=== PATIENT | female | born 1990 | race Caucasian/White ===

== ENCOUNTER 2017-11-09 01:08 | Outpatient (CLI) | payer BC, SELFPAY ==
--- NOTE | 2017-11-09 14:31 | DI.MRI_ITS ---
SYMPTOM/DIAGNOSIS: RT SIDED PULSATILE TINNITUS N93.A1 NECK MRA: The study was conducted according to the usual protocol without contrast enhancement. The right common and internal carotid arteries are unremarkable. The right external carotid and right vertebral artery is unremarkable. The right common carotid, right internal carotid arteries are unremarkable. The left internal carotid and left vertebral artery is unremarkable. SUMMARY No abnormality is demonstrated. Normal MRA neck.
--- NOTE | 2017-11-09 15:25 | DI.MRI_ITS ---
SYMPTOM/DIAGNOSIS: RT SIDED PULSATILE TINNITUS H93.A1 MRA OF HEAD WITHOUT INTRAVENOUS CONTRAST: The study was conducted according to the usual protocol. The right internal carotid artery is unremarkable. The right anterior, middle and posterior cerebral arteries are unremarkable. The right vertebral artery is unremarkable. The left internal carotid artery, left anterior, middle and posterior cerebral artery is normal. The left vertebral artery is unremarkable. The basilar artery is unremarkable. There is no evidence of occlusion or stenosis. There is no aneurysm. SUMMARY: Normal brain MRA.
--- NOTE | 2017-11-09 16:46 | DI.VRAD_ITS ---
EXAM: MR Angiography Head Without And With Intravenous Contrast CLINICAL HISTORY: 27 years old, female; Pain; Other: R sided tinnitus TECHNIQUE: Magnetic resonance angiography images of the head without and with intravenous contrast. MIP reconstructed images were created and reviewed. COMPARISON: CAROTID MRA^CAROTIDS 11/09/2017 2:58 PM FINDINGS: Right internal carotid artery: No acute findings. Intracranial segment is patent with no significant stenosis. No aneurysm. Right anterior cerebral artery: Unremarkable. No occlusion or significant stenosis. No aneurysm. Right middle cerebral artery: Unremarkable. No occlusion or significant stenosis. No aneurysm. Right posterior cerebral artery: Unremarkable. No occlusion or significant stenosis. No aneurysm. Right vertebral artery: Unremarkable as visualized. Left internal carotid artery: No acute findings. Intracranial segment is patent with no significant stenosis. No aneurysm. Left anterior cerebral artery: Unremarkable. No occlusion or significant stenosis. No aneurysm. Left middle cerebral artery: Unremarkable. No occlusion or significant stenosis. No aneurysm. Left posterior cerebral artery: Unremarkable. No occlusion or significant stenosis. No aneurysm. Left vertebral artery: Unremarkable as visualized. Basilar artery: Unremarkable. No occlusion or significant stenosis. No aneurysm. IMPRESSION: Normal head/brain MRA. Dictated and Authenticated by: Lyle Vazquez MD. Ordering:CHARISMA DE LOS SANTOS MD
--- NOTE | 2017-11-09 16:48 | DI.VRAD_ITS ---
EXAM: MR Angiography Neck Without Intravenous Contrast CLINICAL HISTORY: 27 years old, female; Pain; Other: R sided tinnitus TECHNIQUE: Magnetic resonance angiography images of the neck without intravenous contrast. MIP reconstructed images were created and reviewed. COMPARISON: No relevant prior studies available. FINDINGS: Right common carotid artery: Unremarkable. No significant stenosis. No dissection or occlusion. Right internal carotid artery: Unremarkable. Extracranial segment is patent with no significant stenosis. No dissection or occlusion. Right external carotid artery: Unremarkable. No occlusion. Right vertebral artery: Unremarkable. No significant stenosis. No dissection or occlusion. Left common carotid artery: Unremarkable. No significant stenosis. No dissection or occlusion. Left internal carotid artery: Unremarkable. Extracranial segment is patent with no significant stenosis. No dissection or occlusion. Left external carotid artery: Unremarkable. No occlusion. Left vertebral artery: Unremarkable. No significant stenosis. No dissection or occlusion. Soft tissues: Unremarkable as visualized. CAROTID STENOSIS REFERENCE USING NASCET CRITERIA: % ICA stenosis = (1 - narrowest ICA diameter/diameter of distal cervical ICA) x 100. Mild - <50% stenosis. Moderate - 50-69% stenosis. Severe - 70-94% stenosis. Near occlusion - 95-99% stenosis. Occluded - 100% stenosis. IMPRESSION: Normal neck MRA. Dictated and Authenticated by: Lyle Vazquez MD. Ordering:CHARISMA DE LOS SANTOS MD
== END 2017-11-09 01:28 ==
PROVIDERS: PCP Nurse Practitioner Family; Visit Provider Otolaryngology Otolaryngology/Facial Plastic Surgery
DX: H93.A1 Pulsatile tinnitus, right ear (principal)
CPT/HCPCS: 70544; 70547

== ENCOUNTER 2018-01-12 10:45 | Outpatient (REF) | payer BC, SELFPAY ==
--- NOTE | 2018-01-12 09:30 | PAPFT_PTH ---
PATIENT: Iraida Renee LOC: [facility] U#:[id number] AGE/SX: 27/F ROOM: RE01/12/[address]: TIP Gonzales : 1990 BED: DIS: 01/12/2018 SPEC #: [id number] RECD: 01/12/18 12:36 STATUS: KEYUR REQ #: [id number] RODRIGO: 01/12/18 09:[address]: Jazzmine Lombardo DEPT: [facility] Cytology RECD BY: Isa Ny ENTERED: 01/12/18 12:37 SP TYPE: PAPFT OTHR DR: Jo-Ann Etienne Tissues: 1 - CX/ENDOCX FOR PAP SMEARS Procedures: PAP THIN PREP/UVM Screening Comments: [id number]
== END 2018-01-12 11:05 ==
LOC: LBN 10:45
PROVIDERS: PCP Nurse Practitioner Family; Visit Provider Nurse Practitioner Family
DX: Z12.4 Encounter for screening for malignant neoplasm of cervix (principal)
CPT/HCPCS: 88142

== ENCOUNTER 2018-05-18 00:34 | Outpatient (CLI) | payer BC, SELFPAY ==
--- NOTE | 2018-05-18 10:50 | DI.US_ITS ---
SYMPTOMS/DIAGNOSIS: PELVIC PAIN, R10.2 PELVIC ULTRASOUND: The uterus measures 6.8 cm in length, 3.4 cm in height and 4.7 cm in width with an endometrial stripe thickness of 10 mm. There is a very small region of sonolucency in the uterine fundus surrounded by a halo of slight increased echogenicity. The findings possibly representing a very early gestation. Prominent vessels are noted in the right apex of the uterus raising the possibility of pelvic congestion syndrome. The ovaries are intact. The right ovary measures 2.9 x 1.5 x 2.3 cm and contains a dominant follicle measuring 1.4 x 1.4 x 1 cm. The left ovary measures 2.4 x 1.3 x 2.2 cm. Multiple follicles are identified. SUMMARY: The possibility of a very early intrauterine gestation could not be excluded on the basis of today's examination. Follow up evaluation with HCG levels and repeat pelvic ultrasound in 5-7 days is suggested for further review.
== END 2018-05-18 00:54 ==
PROVIDERS: PCP Nurse Practitioner Family; Visit Provider Nurse Practitioner Women's Health
DX: R10.2 Pelvic and perineal pain (principal); R93.5 Abnormal findings on diagnostic imaging of other abdominal regions, including retroperitoneum; N94.89 Other specified conditions associated with female genital organs and menstrual cycle
CPT/HCPCS: 76830; 76856

== ENCOUNTER 2018-05-19 13:14 | Outpatient (CLI) | payer BC, SELFPAY ==
[2018-05-19 13:49] LABS: HCG Quant, Pregnancy 1 mIU/mL (1-3)
== END 2018-05-19 13:34 ==
PROVIDERS: PCP Family Medicine; Visit Provider Nurse Practitioner Women's Health
DX: N91.2 Amenorrhea, unspecified (principal)
CPT/HCPCS: 36415; 84702

== ENCOUNTER 2018-05-23 00:55 | Outpatient (CLI) | payer BC, SELFPAY ==
--- NOTE | 2018-05-23 13:16 | DI.US_ITS ---
SYMPTOM/DIAGNOSIS: F/U, PELVIC PAIN, ? IUP WITH DECIDUAL SAC SIGN PELVIC ULTRASOUND: Transabdominal and transvaginal examination was performed. Comparison ultrasound is 05/18/18. The uterus measures 8.1 cm. long by 3.7 cm. AP by 4.7 cm. transverse. The endometrial stripe is within normal limits at .9 cm. No evidence of an intrauterine gestation is seen. The previously noted cystic area is no longer visualized. There is a small amount of fluid seen in the endometrial canal. The ovaries are grossly unremarkable. There is normal blood flow. No evidence of torsion. There is a small amount of free fluid in the cul-de-sac. IMPRESSION: No evidence of an intrauterine gestation.
== END 2018-05-23 01:15 ==
PROVIDERS: PCP Family Medicine; Visit Provider Nurse Practitioner Women's Health
DX: R10.2 Pelvic and perineal pain (principal)
CPT/HCPCS: 76830; 76856

== ENCOUNTER 2019-07-04 10:55 | Outpatient (REF) | payer BC, SELFPAY ==
[2019-07-05 14:56] LABS: Chlamydia Result Negative (Negative); GC Result Negative (Negative)
== END 2019-07-04 11:15 ==
LOC: LBN 10:55
PROVIDERS: PCP Family Medicine; Visit Provider Nurse Practitioner Women's Health
DX: Z11.3 Encounter for screening for infections with a predominantly sexual mode of transmission (principal)
CPT/HCPCS: 87491; 87591

== ENCOUNTER 2020-11-04 11:28 | Outpatient (REF) | payer BC, SELFPAY ==
--- NOTE | 2020-11-04 09:30 | PAPFT_PTH ---
PATIENT: Iraida Renee LOC: [facility] U#:[id number] AGE/SX: 30/F ROOM: RE11/04/[address]: Rowena Landa MD : 1990 BED: DIS: 11/04/2020 SPEC #: [id number] RECD: 11/04/20 12:53 STATUS: KEYUR REMicaela #: [id number] RODRIGO: 11/04/20 09:[address]: Rowena Landa DEPT: [facility] Cytology RECD BY: Isa Ny ENTERED: 11/04/20 12:53 SP TYPE: PAPFT OTHR DR: Marcellus Mercedes Tissues: 1 - CX/ENDOCX FOR PAP SMEARS Procedures: PAP THIN PREP/UVM Screening HPV DNA PROBE Comments: [id number] (CHLAMYDIA/GC)
[2020-11-05 15:45] LABS: Chlamydia Result Negative (Negative); GC Result Negative (Negative)
== END 2020-11-04 11:29 | disposition home or self-care (01) ==
LOC: LBN 11:28
PROVIDERS: PCP Family Medicine; Referring Provider Obstetrics & Gynecology; Visit Provider Obstetrics & Gynecology
DX: Z12.4 Encounter for screening for malignant neoplasm of cervix (principal); Z11.51 Encounter for screening for human papillomavirus (HPV); Z11.3 Encounter for screening for infections with a predominantly sexual mode of transmission
CPT/HCPCS: 87491; 87591; 88142; 87624

== ENCOUNTER 2020-12-15 13:30 | Outpatient (CLI) | payer BC, SELFPAY ==
--- NOTE | 2020-12-15 13:15 | DI.RAD_ITS ---
Exam(s) XR HIP LT COMPLETE AP PELVIS EXAM: XR HIP LT COMPLETE AP PELVIS CLINICAL HISTORY: L hip pain. TECHNIQUE: 2D digital imaging was performed. COMPARISON: CR LEFT HIP COMPLETE from 02/09/2011 CR LEFT HIP COMPLETE from 02/09/2011 US US PELVIS TRANSVAGINAL from 05/23/2018 US US PELVIS TRANSVAGINAL from 05/23/2018 FINDINGS: Two views including AP view of pelvis in both hips and a lateral view of the left hip, compared to left There is no evidence of pelvic nor hip fracture. There is no hip joint space narrowing. No evidence of developmental hip dysplasia. No degenerative changes. Sacroiliac joints appear unremarkable. IMPRESSION: No significant radiographic findings nor significant change compared to January 2011. DATA REPOSITORY: RADIATION DOSE DELIVERED:
== END 2020-12-15 13:31 | disposition home or self-care (01) ==
LOC: DIORS 13:30
PROVIDERS: PCP Family Medicine; Referring Provider Family Medicine; Visit Provider Student in an Organized Health Care Education/Training Program
DX: M25.552 Pain in left hip (principal)
CPT/HCPCS: 73502

== ENCOUNTER 2021-06-07 11:00 | Emergency (ER) | payer MEDICAID, SELFPAY ==
--- NOTE | 2021-06-07 11:00 | RT.EKG_ITS ---
APPROVED REPORT Exam: Resting ECG Reason for Exam: chest pain Patient Location: E HR:93 bpm ECG Measurements Heart Rate 93 AXIS [place] 137 P 66 QRSd 78 QRS 24 QT 364 T 22 QTc 454 Conclusion Sinus rhythm...normal P axis, V-rate 60- 99. Sinus. Normal axis. No STEMI. I have reviewed and interpreted ECG and agree with software generated interpretation.
[2021-06-07 11:09] VITALS: BP 143/88; PULSE 94; RESP 18; TEMP 37.2
--- NOTE | 2021-06-07 11:30 | ED.GENADUL_ITS ---
Discharge Plan Disposition Patient Disposition: HOME Condition: Improving Discharge Details Clinical Impression: Acute pleurisy without pleural effusion Primary Care Provider: Marcellus Mercedes ED Provider: Tylor Acosta Home Meds and New Rx's Prescriptions: New indomethacin 50 mg capsule 50 mg PO TID 5 Days Qty: 15 0RF Rx Instructions: administer with food or milk Continued clonazepam 0.25 mg tablet,disintegrating 0.25 mg PO BID PRN (Reason: panic attack(s)) Qty: 20 0RF multivitamin Tablet 1 tab PO DAILY 0RF albuterol sulfate [ProAir HFA] 8.5 GM HFA aerosol inhaler 1 - 2 puff Inhalation Q6H PRN Qty: 1 0RF Discharge Instructions Instructions: Pleurisy (ED) Additional Instructions: Please ensure that you stay well-hydrated and take medication as prescribed. If you notice any new or worsening symptoms feel free to return to the emergency department immediately for reevaluation. Otherwise follow-up with your primary care provider in the next week especially if you are not improving Referrals: Marcellus Mercedes [Primary Care Provider] - Discharge Data Discharge Date/Time-TO BE ENTERED AT DEPARTURE: 06/07/21 16:11 Medical Decision Making Patient presenting the emergency department chief complaint of chest pain. Patient reports that this began last night and is worse with movement and deep breath. Patient denies any injury or trauma but does state URI illness last week that is resolved. Patient does state that she had COVID in February. Patient has no respiratory symptoms at this point. Physical exam is unremarkable. 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 Plan to perform typical cardiac labs including EKG and troponins. Patient is stable at this time. Please see physician interpretation for full interpretation of EKG but patient is in sinus rhythm with rate of 93, normal EKG with no signs of STEMI or acute infarct. Review of labs shows a nondiagnostic and overall unremarkable CBC, D-dimer 176, potassium slightly low at 3.4 and AST low at 14 otherwise on remarkable CMP. Initial troponin is also negative. Patient reassessed and continues to discomfort so we will give patient GI cocktail and Toradol Review of chest x-ray along with radiologist interpretation shows normal chest no acute findings, no pleural effusions no cardiomegaly and clear lungs. Repeat troponin is also not detectable. Repeat EKG shows again sinus rhythm, rate of 81, no ischemic changes noted. Please see physician interpretation for full interpretation of EKG. Patient reassessed and did state improvement of symptoms but movement and deep inspiration still exacerbate symptoms. Suspect that patient has pleuritic chest pain post viral illness. We will plan on placing patient on indomethacin 3 times daily for the next 5 days and having patient follow-up with primary care provider if not improving. For any new or significant worsening of symptoms patient was encouraged to return to emergency department for reassessment. After discussion of diagnosis and plan of care patient has no further needs, questions, or concerns and states clear understanding to return to the emergency department for any worsening symptoms. HPI General Mode of arrival: ambulatory . Date/Time Provider Initiated Documentation: 06/07/21 11:05 . Limitations to Documentation: no limitations . Information obtained by: patient . History of Present Illness 30 year old F presents to the emergency department with the chief complaint of chest pain, described as moderate, with intensity rated at 6. Quality is described as aching and other (tightness), and is localized to the chest. Patient reports no radiation. Patient started experiencing this day(s) (1) and it has been intermittent. improves with No relieving factors improve symptom(s), No exacerbating factors reported . Patient notes no other symptoms.. Patient did receive the following treatments prior to arrival, other (Tums) Related Data Home Medications Medication Instructions Recorded Confirmed albuterol sulfate 90 mcg/actuation 1 - 2 puff INHALATION Q6H PRN #1 07/08/03/17/21 aerosol inhaler (ProAir HFA) inhaler clonazepam 0.25 mg disintegrating 0.25 mg PO BID PRN #20 tab 06/07/18 03/17/21 tablet multivitamin 1 tab PO DAILY 11/04/20 03/17/21 indomethacin 50 mg capsule 50 mg PO TID 5 Days #15 cap 06/07/21 Previous Rx's Medication Instructions Recorded clonazepam 0.25 mg disintegrating 0.25 mg PO BID PRN #20 tab 06/07/18 tablet indomethacin 50 mg capsule 50 mg PO TID 5 Days #15 cap 06/07/21 Allergies Allergy/AdvReac Type Severity Reaction Status Date / Time codeine Allergy Mild made her Verified 03/17/21 15:06 pass out General Stated Complaint: Chest Pain AMY: 3 Review of Systems Constitutional Constitutional: Denies chills, Denies fever(s) and Denies malaise ENT Ears, Nose, Mouth, and Throat: Denies neck pain and Denies sore throat Cardiovascular Cardiovascular: Reports as per HPI, Reports chest pain, Denies chest pain with activity, Denies syncope, Denies irregular heart rhythm, Denies leg edema, Denies lightheadedness, Denies palpitations and Denies dyspnea Respiratory Respiratory: Denies cough, Denies hemoptysis and Denies dyspnea Gastrointestinal Gastrointestinal: Denies abdominal pain, Denies nausea and Denies vomiting Musculoskeletal Musculoskeletal: Denies back pain and Denies neck pain Neurologic Neurologic: Denies syncope Psychiatric Psychiatric: Denies anxiety Endocrine Endocrine: Denies cold intolerance, Denies heat intolerance and Denies palpitations PFSH All Active Problems (Updated 06/07/21 @ 15:33 by Tylor Acosta NP) Acute pleurisy without pleural effusion (Acute) Ganglion cyst of finger of left hand (Acute) Trochanteric bursitis of right hip (Acute) Labral tear of left hip joint (Acute) Pelvic pain (Acute) PMDD (premenstrual dysphoric disorder) (Acute) Diagnostic Laproscopy (Acute) 2011 [facility]. pt told that she had endometriosis -not severe Endometriosis determined by laparoscopy (Acute) Lap 2011 in [facility] Anxiety (Chronic) No longer taking Sertraline. Occasional Clonazepam when she travels. Medical History Anxiety about health Venous hum Surgical History wisdom teeth extraction Family History Father Bipolar 1 disorder Mother Fibrocystic breast Social History Smoking/Tobacco Use Status: Never Smoking risk assessment performed?: Yes Alcohol Intake: current Alcohol Intake frequency: a few times a week Alcohol type: other Drug use: Never Substance use type: does not use Household members: significant other, children and other Details: boyfriend, D- Millicent, S-Mckay. 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 Sexually active: Yes Current gender identity: female What is your relationship status?: Panel score (0-1 are the most socially isolated patients): 0 Do you feel safe at home: Yes Female Reproductive History Menstrual control method: none History History 3 Para 2 Hx # Term Pregnancies 2 Multiple births Hx # Pregnancies 0 Ectopic pregnancies AB induced Hx Number of Living Children 2 AB spontaneous 1 Past Pregnancies Del. Date GA/Weeks # Outcome Route Wgt Sex Labor Lgth Anesthes ia Location Prov Complic 06/19/14 41 Successful vaginal 3175.147 g Female [facility] 08/07/16 Successful vaginal Male [facility] Exam Const General: cooperative, healthy appearing, comfortable, no acute distress, not diaphoretic and not ill appearing Nutritional Appearance: average body habitus Orientation: alert, awake and oriented x3 Limitations: mental status not altered Neck Neck: normal visual inspection, full ROM, trachea midline, supple and no anterior neck swelling Thyroid: thyroid normal Carotids: normal carotid upstroke and no bruits Chest Chest: no localized rib tenderness Resp Effort & Inspection: normal respiratory effort and able to speak in complete sentences Auscultation: clear to auscultation bilaterally Cardio Jugular venous pressure: no JVD Palpation: normal PMI Rate: regular rate Rhythm: regular rhythm Heart Sounds: S1 normal, S2 normal, no click, no gallops, no murmurs and no rubs Bruits: no abdominal aortic bruits and no carotid bruits Pulses: radial pulses present bilaterally 2+ GI Inspection: normal to inspection Palpation: soft, no aortic enlargement, no pulsatile masses and nontender Auscultation: normal bowel sounds Skin General skin exam: no rashes or lesions noted Neuro General: patient alert, patient awake, patient oriented x3, tone normal and moves all extremities Course Vital Signs Vital signs: Vital Signs Temperature 37.2 C 06/07/21 11:09 Pulse 94 H 06/07/21 11:09 Respiratory Rate 18 06/07/21 11:09 Blood Pressure 143/88 H 06/07/21 11:09 Temperature 37.2 C 06/07/21 11:09 Temperature Source Temporal Artery Scan 06/07/21 11:09 Pulse 94 H 06/07/21 11:09 Respiratory Rate 18 06/07/21 11:09 Blood Pressure 143/88 H 06/07/21 11:09 Blood Pressure Position Sitting 06/07/21 11:09
[2021-06-07 11:59] LABS: Abs Immature Grans 0.03 10^3/uL (0.0-0.06); Absolute Basophil Count 0.04 10^3/uL (0.0-0.2); Absolute Eosinophil Count 0.14 10^3/uL (0.0-0.7); Absolute Lymphocyte Count 2.56 10^3/uL (1.2-3.4); Absolute Monocyte Count 0.78 10^3/uL (0.1-0.8); Absolute Neutrophil Count 5.15 10^3/uL (1.2-6.7); Basophils % 0.5; Eosinophils % 1.6; HGB 14.1 g/dL (11.2-15.7); Immature Grans % 0.3; Lymphocytes % 29.4; MCH 30.6 pg (27.0-33.0); MCHC 33.6 % (32.0-36.0); MCV 91.1 fL (80-95); MPV 11.3 fL (8.0-11.0); Neutrophils % 59.2; Platelet Count 300 10^3/uL (130-400); RBC 4.61 10^6/uL (3.93-5.22); RDW 11.5 % (11.7-14.6); RDW-SD 38.4 fL
[2021-06-07 12:14] LABS: ALT 24 U/L (14-59); AST 14 U/L (15-37); Albumin 4.1 g/dL (3.4-5.0); Alkaline Phosphatase 49 U/L (46-116); Anion Gap 7.3 mmol/L (3-11); BUN 14 mg/dL (7-18); Bilirubin, Total 0.4 mg/dL (0.2-1.0); CO2 30.7 mmol/L (21.0-32.0); CREATININE 0.7 mg/dL (0.55-1.02); Calcium 9.7 mg/dL (8.5-10.1); Chloride 102 mmol/L (98-107); Glucose 85 mg/dL (74-106); Magnesium 1.9 mg/dL (1.8-2.4); Potassium 3.4 mmol/L (3.5-5.1); Sodium 140 mmol/L (136-145); Total Protein 7.6 g/dL (6.4-8.2); Troponin I < 50 ng/L (<or=60)
[2021-06-07 12:28] LABS: D-Dimer 176 ng/mlFEU (<500)
[2021-06-07] MEDS: Ketorolac 15 MG/ML VIAL IVP (13:05)
--- NOTE | 2021-06-07 14:30 | RT.EKG_ITS ---
APPROVED REPORT Exam: Resting ECG Reason for Exam: Repeat chest pain Patient Location: E HR:81 bpm ECG Measurements Heart Rate 81 AXIS ME 141 P 64 QRSd 82 QRS 39 QT 375 T 39 QTc 437 Conclusion Sinus rhythm...normal P axis, V-rate 60- 99. Sinus. Normal axis. No STEMI. I have reviewed and interpreted ECG and agree with software generated interpretation.
--- NOTE | 2021-06-07 14:45 | DI.RAD_ITS ---
Exam(s) XR CHEST 2V PA LATERAL EXAM: XR CHEST 2V PA LATERAL CLINICAL HISTORY: Chest pain TECHNIQUE: 2D digital imaging was performed. COMPARISON: CR CHEST 2 VIEWS PA,LAT from 11/05/2014 FINDINGS: The heart is not enlarged. The lungs are clear and well expanded. No pleural effusion seen. Mediastin al contours appear intact. IMPRESSION: Normal chest. RADIATION DOSE DELIVERED: Total DLP
[2021-06-07 14:53] LABS: Troponin I < 50 ng/L (<or=60)
[2021-06-07 16:01] VITALS: BP 118/75; PULSE 87; RESP 18; TEMP 36.9; O2SAT 97
--- NOTE | 2021-06-07 16:07 | NUR.NOTE ---
Baljit Acosta would like the patient to follow up with Dr. Mercedes for pleurasy. CLB
== END 2021-06-07 16:11 | disposition home or self-care (01) ==
PROVIDERS: Emergency Provider Nurse Practitioner Family; PCP Family Medicine
DX: J90 Pleural effusion, not elsewhere classified (principal); R07.9 Chest pain, unspecified
CPT/HCPCS: 36415; 80053; 81025; 93005; 96374; 99284; 71046; 83735; 84484; 85025; 85379; 93010; J1885

== ENCOUNTER 2023-06-27 08:45 | Emergency (ER) | payer MEDICAID, SELFPAY ==
[2023-06-27 08:45] VITALS: BP 124/74; PULSE 93; RESP 15; TEMP 37.3; O2SAT 100
--- NOTE | 2023-06-27 08:45 | DI.RAD_ITS ---
Exam(s) XR HAND RT COMPLETE XR WRIST RT COMPLETE EXAM: XR WRIST RT COMPLETE and XR hand RT complete CLINICAL HISTORY: wrist pain. TECHNIQUE: 2D digital imaging was performed of the right hand and wrist. Six views were obtained. PA, lateral and oblique views were obtained. COMPARISON: There are no priors for comparison. FINDINGS: BONES: There is an acute oblique fracture through the midshaft of the 5th metacarpal bone. There is 2-3 mm of displacement anteriorly. No bony destructive lesion is seen. JOINTS: The carpal bones are normally aligned. The joint spaces are well maintained. SOFT TISSUE: Normal. IMPRESSION: There is a mildly displaced fracture involving the midshaft of the right 5th metacarpal bone. DATA REPOSITORY: RADIATION DOSE DELIVERED:
[2023-06-27] MEDS: Acetaminophen 500 MG TAB 1000 MG PO (09:10)
[2023-06-27] MEDS: Ketorolac 10 MG TAB PO (09:10)
--- NOTE | 2023-06-27 13:55 | W.ED.GENAD ---
Discharge Plan Disposition Patient Disposition: Home Discharge Details Clinical Impression: Hand fracture, right Primary Care Provider: Marcellus Mercedes ED Provider: Gregoria Eason Home Meds and New Rx's Prescriptions: No Action clonazepam 0.25 mg tablet,disintegrating 0.25 mg PO BID PRN (Reason: panic attack(s)) Qty: 20 0RF Patient Comments: Has not used this in years multivitamin Tablet 1 tab PO DAILY albuterol sulfate [ProAir HFA] 8.5 GM HFA aerosol inhaler 1 - 2 puff Inhalation Q6H PRN Qty: 1 Discharge Instructions Instructions: Boxer Fracture (ED) Additional Instructions: you have a fracture in your hand wear the splint until seen by ortho you have been referred to ortho and they will contact you for follow up appointment Referrals: Iftikhar Rhodes MD [ [facility] STAFF PHYSICIAN] - [facility] General Date/Time Provider Initiated Documentation: 06/27/23 08:58. Limitations to Documentation: no limitations. Information obtained by: patient. HPI Narrative: 32-year-old female without significant past medical history presents for evaluation of acute onset right hand pain. She is right-hand dominant. She reports that last night when she was going to the bathroom she tripped and fell striking her hand on the ground. She reports acute pain and bruising in the right hand. Pain worse with movement. She reports that she is having difficulty with moving her finger secondary to pain. She denies any open wounds or bleeding. She denies any numbness or tingling. Related Data Home Medications Medication Instructions Recorded Confirmed albuterol sulfate 90 mcg/actuation 1 - 2 puff inhalation Q6H PRN ##1 07/08/16 06/27/23 aerosol inhaler (ProAir HFA) clonazepam 0.25 mg disintegrating 0.25 mg PO BID PRN panic attack(s) 06/07/18 06/27/23 tablet #20 tabs multivitamin 1 tab PO DAILY 11/04/20 06/27/23 Previous Rx's Medication Instructions Recorded clonazepam 0.25 mg disintegrating 0.25 mg PO BID PRN panic attack(s) 06/07/18 tablet #20 tabs Allergies Allergy/AdvReac Type Severity Reaction Status Date / Time codeine Allergy Mild made her Verified 06/27/23 08:51 pass out General Stated Complaint: Orthopedic AMY: 4 Exam Narrative Exam Narrative: Review of Systems: All systems reviewed & are unremarkable except as noted in HPI and below Well-developed, no acute distress NCAT PERRL, normal conjunctiva RRR Unlabored respiratory effort Nondistended abdomen Right hand with significant bruising across third fourth and fifth MCP joint, there is bruising and significant tenderness along the fifth metacarpal, opposition intact, sensation intact, no scissoring, No rashes or lesions. no focal neurologic deficits Appropriate mood and affect Course Vital Signs Vital signs: Vital Signs Temperature 37.3 C 06/27/23 08:45 Pulse 93 H 06/27/23 08:45 Respiratory Rate 15 06/27/23 08:45 Blood Pressure 124/74 06/27/23 08:45 Pulse Oximetry 100 06/27/23 08:45 Temperature 37.3 C 06/27/23 08:45 Temperature Source Temporal Artery Scan 06/27/23 08:45 Pulse 93 H 06/27/23 08:45 Respiratory Rate 15 06/27/23 08:45 Respiratory Effort Normal 06/27/23 08:49 Blood Pressure 124/74 06/27/23 08:45 Blood Pressure Position Sitting 06/27/23 08:45 Pulse Oximetry 100 06/27/23 08:45 Oxygen Delivery Method Room Air 06/27/23 08:45 Oxygen Flow Rate 0 06/27/23 08:45 Pain Level 7 06/27/23 08:50 Comment Has not taken anything for the pain- 2/10 without movement, 7/10 with movement 06/27/23 08:45 Procedures Orthopedic Splinting/Casting Injury #1: Side: right Upper Extremity Injury Location: hand Upper Extremity Immobilizer: ulnar gutter Medical Decision Making Emergent evaluation of acute right hand pain. Initial differential includes fracture, contusion, less likely ligamentous injury or dislocation. Given mechanism and physical examination, most suspicious for fracture. An x-ray was obtained and did confirm a fracture of the fifth metacarpal. The patient is neurovascularly intact without significant scissoring or displacement of the fracture fragment. I reviewed the x-ray, the patient was placed in an ulnar gutter splint. She was referred to orthopedics for definitive management. Recommended pain control with Motrin and Tylenol as needed at home. Medical Records Medical records reviewed: Yes I reviewed the patient's medical records. Lab Data Lab results reviewed: Yes I reviewed the patient's lab results. Quality:SDOH Health Related Social Needs: No Data to Display PFSH All Active Problems Hand fracture, right (Acute) Medical History Ganglion cyst of finger of left hand Trochanteric bursitis of right hip Labral tear of left hip joint Pelvic pain PMDD (premenstrual dysphoric disorder) Venous hum Endometriosis determined by laparoscopy Lap 2011 in [facility] Anxiety No longer taking Sertraline. Occasional Clonazepam when she travels. Surgical History wisdom teeth extraction Diagnostic Laproscopy 2011 [facility]. pt told that she had endometriosis -not severe Family History Father Bipolar 1 disorder Mother Fibrocystic breast Social History Smoking/Tobacco Use Status: Never Smoking risk assessment performed?: Yes Alcohol Intake: current Alcohol Intake frequency: a few times a week Alcohol type: other Drug use: Never Substance use type: does not use Household members: significant other, children and other Details: boyfriend, Umer, S-Mckay. 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 Sexually active: Yes Current gender identity: female What is your relationship status?: Panel score (0-1 are the most socially isolated patients): 0 Do you feel safe at home: Yes Female Reproductive History Menstrual control method: none History History 3 Para 2 Hx # Term Pregnancies 2 Multiple births Hx # Pregnancies 0 Ectopic pregnancies AB induced Hx Number of Living Children 2 AB spontaneous 1 Past Pregnancies Del. Date GA/Weeks # Preg Succ Route Wgt Sex Labor Lgth Anesthesia Location [facility] 06/19/14 41 vaginal 3175.147 g Female [facility] 08/07/16 vaginal Male [facility] PAWSS Have you Been Recently Intoxicated or Drunk Within the Last 30 days?: No Have you Ever Experienced Previous Episodes of Alcohol Withdrawal?: No Have you ever Experienced Withdrawal Seizures?: No Have you ever Experienced Delirium Tremens(DT)s?: No Have you ever undergone Alcohol Rehabilitation Treatment (i.e, inpt ot outpatient treatment programs)?: No Have you ever Experienced Blackouts?: No Have you ever Combined Alcohol with other Downers within the last 90 days?: No Have you ever Combined Alcohol with any other Substance of Abuse during the last 90 days?: No Result: 0
== END 2023-06-27 09:52 | disposition home or self-care (01) ==
PROVIDERS: Emergency Provider Emergency Medicine; PCP Family Medicine
DX: S62.326A Displaced fracture of shaft of fifth metacarpal bone, right hand, initial encounter for closed fracture (principal); M79.601 Pain in right arm; M79.641 Pain in right hand; W19.XXXA Unspecified fall, initial encounter
CPT/HCPCS: 26600; 29125; 99284; 73110; 73130; 99283

== ENCOUNTER 2023-07-04 13:21 | Outpatient (CLI) | payer MEDICAID, SELFPAY ==
--- NOTE | 2023-07-04 08:15 | DI.RAD_ITS ---
Exam(s) XR HAND RT COMPLETE EXAM: XR HAND RT COMPLETE CLINICAL HISTORY: R 5TH METACARPAL FX. TECHNIQUE: 2D digital imaging was performed. COMPARISON: CR XR HAND RT COMPLETE from 06/27/2023 FINDINGS: 3 views The fracture site at the midshaft of the 5th metacarpal appears unchanged. No significant displaceme nt. No radiopaque foreign body. No osseous lesions. No other fractures identified IMPRESSION: Stable appearance of midshaft fracture of the 5th metacarpal. Unchanged from prior images of 024. DATA REPOSITORY: RADIATION DOSE DELIVERED:
== END 2023-07-04 13:22 | disposition home or self-care (01) ==
LOC: DIORS 13:25
PROVIDERS: PCP Family Medicine; Visit Provider Student in an Organized Health Care Education/Training Program
DX: S62.124 Nondisplaced fracture of lunate [semilunar], right wrist (principal); X58.XXXD Exposure to other specified factors, subsequent encounter
CPT/HCPCS: 73130

== ENCOUNTER 2023-07-18 08:58 | Outpatient (CLI) | payer MEDICAID, SELFPAY ==
--- NOTE | 2023-07-18 08:30 | DI.RAD_ITS ---
Exam(s) XR HAND RT COMPLETE EXAM: XR HAND RT COMPLETE CLINICAL HISTORY: F/U 5TH METACARPAL FX. TECHNIQUE: 2D digital imaging was performed of the right hand. Three images were obtained. AP, late ral and oblique views were obtained. COMPARISON: CR XR HAND RT COMPLETE from 07/04/2023 FINDINGS: BONES: There has been no change in alignment of the fracture involving the right 5th metacarpal bone. No new fracture is seen. No bony destructive lesion is seen. JOINTS: No dislocation present. SOFT TISSUE: Normal. IMPRESSION: Stable alignment of the 5th metacarpal fracture. DATA REPOSITORY: RADIATION DOSE DELIVERED:
== END 2023-07-18 08:59 | disposition home or self-care (01) ==
LOC: DIORS 08:58
PROVIDERS: PCP Nurse Practitioner Family; Referring Provider Nurse Practitioner Family; Visit Provider Student in an Organized Health Care Education/Training Program
DX: S62.326D Displaced fracture of shaft of fifth metacarpal bone, right hand, subsequent encounter for fracture with routine healing (principal); X58.XXXD Exposure to other specified factors, subsequent encounter
CPT/HCPCS: 73130

== ENCOUNTER 2023-08-11 11:05 | Outpatient (CLI) | payer MEDICAID, SELFPAY ==
--- NOTE | 2023-08-11 08:00 | DI.RAD_ITS ---
Exam(s) XR HAND RT COMPLETE EXAM: XR HAND RT COMPLETE CLINICAL HISTORY: F/U 5TH METACARPAL FX. TECHNIQUE: 2D digital imaging was performed of the right hand. Three images were obtained. AP, late ral and oblique views were obtained. COMPARISON: CR XR HAND RT COMPLETE from 07/18/2023 FINDINGS: BONES: There is stable alignment of the fracture of the 5th metacarpal bone. Callus formation has de veloped about the fracture suggesting some interval healing. No bony destructive lesion is seen. JOINTS: No dislocation present. SOFT TISSUE: Normal. IMPRESSION: Stable alignment of the 5th metacarpal fracture. DATA REPOSITORY: RADIATION DOSE DELIVERED:
== END 2023-08-11 11:06 | disposition home or self-care (01) ==
LOC: DIORS 11:05
PROVIDERS: PCP Nurse Practitioner Family; Visit Provider Student in an Organized Health Care Education/Training Program
DX: S62.306D Unspecified fracture of fifth metacarpal bone, right hand, subsequent encounter for fracture with routine healing (principal)
CPT/HCPCS: 73130

== ENCOUNTER 2023-11-16 14:40 | Outpatient (REF) | payer MEDICAID, SELFPAY ==
--- NOTE | 2023-11-16 14:30 | PAPFT_PTH ---
PATIENT: Iraida Renee LOC: [facility] U#:[id number] AGE/SX: 33/F ROOM: RE11/16/[address]: Rowena Landa MD : 1990 BED: DIS: 11/16/2023 SPEC #: [id number] RECD: 11/16/23 17:15 STATUS: KEYUR REMicaela #: [id number] RODRIGO: 11/16/23 14:[address]: Rowena Landa DEPT: [facility] Cytology RECD BY: Isa Ny ENTERED: 11/16/23 17:15 SP TYPE: PAPFT PANTERA DR: PROSPER CAREY NP Tissues: 1 - CX/ENDOCX FOR PAP SMEARS Procedures: PAP THIN PREP/UVM Screening HPV DNA PROBE Comments: [id number] (HPV 16 & 18/45)
== END 2023-11-16 14:41 | disposition home or self-care (01) ==
LOC: LBN 14:40
PROVIDERS: PCP Nurse Practitioner Family; Visit Provider Obstetrics & Gynecology
DX: Z12.4 Encounter for screening for malignant neoplasm of cervix (principal)
CPT/HCPCS: 88142; 87624

== ENCOUNTER 2023-12-13 14:08 | Outpatient (REF) | payer MEDICAID, SELFPAY ==
--- NOTE | 2023-12-13 13:20 | ENDO_PTH ---
PATIENT: Iraida Renee LOC: [facility] U#:[id number] AGE/SX: 33/F ROOM: RE12/13/[address]: Rowena Landa MD : 1990 BED: DIS: 12/13/2023 SPEC #: [id number] RECD: 12/13/23 17:54 STATUS: KEYUR REQ #: [id number] RODRIGO: 12/13/23 13:[address]: Rowena Landa DEPT: Surgical Specimen RECD BY: Isa Ny ENTERED: 12/13/23 17:55 SP TYPE: Endo OTHR DR: PROSPER CAREY NP Tissues: 1 - ENDOCERVICAL BX/CURRETTE Procedures: GROSS AND MICRO LEVEL 4 Comments: [id number]
== END 2023-12-13 14:09 | disposition home or self-care (01) ==
LOC: LBN 14:08
PROVIDERS: PCP Nurse Practitioner Family; Visit Provider Obstetrics & Gynecology
DX: Z01.818 Encounter for other preprocedural examination (principal); Z87.42 Personal history of other diseases of the female genital tract
CPT/HCPCS: 88305

== ENCOUNTER 2024-07-13 16:58 | Outpatient (REF) | payer MEDICAID, SELFPAY ==
[2024-07-13 22:03] LABS: HCT 39.7 % (36.0-46.0); HGB 13.2 g/dL (11.2-15.7); MCH 30.3 pg (27.0-33.0); MCHC 33.2 % (32.0-36.0); MCV 91 fL (80-95); MPV 11.9 fL (8.0-11.0); Platelet Count 312 10^3/uL (130-400); RBC 4.36 10^6/uL (3.93-5.22); RDW 11.5 % (11.7-14.6); RDW-SD 38.5 fL; WBC 7.27 10^3/uL (4.4-10.8)
[2024-07-13 22:21] LABS: ALT 17 U/L (14-59); AST 15 U/L (15-37); Albumin 4.4 g/dL (3.4-5.0); Alkaline Phosphatase 52 U/L (46-116); Anion Gap 9.9 mmol/L (3-11); BUN 11 mg/dL (7-18); Bilirubin, Total 0.4 mg/dL (0.2-1.0); CO2 29.1 mmol/L (21.0-32.0); CREATININE 0.8 mg/dL (0.55-1.02); Calcium 9.6 mg/dL (8.5-10.1); Chloride 103 mmol/L (98-107); Estimated GFR 99.71 (mL/min/1.73m2); Glucose 89 mg/dL (74-106); Potassium 3.5 mmol/L (3.5-5.1); Sodium 142 mmol/L (136-145); TSH (W/Ref FT4) 1.56 uIU/mL (0.36-3.74); Total Protein 7.6 g/dL (6.4-8.2)
[2024-07-16 10:36] LABS: IgA 133 mg/dL (85-499)
[2024-07-16 11:12] LABS: Tissue Transglutaminase IgA <4.0 CU (<20.0)
[2024-07-18 18:07] LABS: Tissue Transglutaminase Ab IgG 3.8 U/mL
== END 2024-07-13 16:59 | disposition home or self-care (01) ==
LOC: NCHCN 16:58
PROVIDERS: PCP Nurse Practitioner Family; Visit Provider Family Medicine
DX: R53.83 Other fatigue (principal)
CPT/HCPCS: 80053; 82784; 85027; 86364; 84443

== ENCOUNTER 2024-08-08 15:09 | Outpatient (CLI) | payer MEDICAID, SELFPAY ==
--- NOTE | 2024-08-08 15:00 | DI.RAD_ITS ---
Exam(s) XR KNEE LT 3V AP,LAT,ZIYAD EXAM: XR KNEE LT 3V AP,LAT,ZIYAD CLINICAL HISTORY: LEFT KNEE PAIN. TECHNIQUE: 2D digital imaging was performed. Three views. COMPARISON: No exams were available for comparison FINDINGS: BONES: No acute fracture is present. No bony destructive lesion is seen. JOINTS: Joint spaces are maintained the knee is normally aligned. No joint effusion is seen. SOFT TISSUE: Normal. IMPRESSION: Normal radiographs of the left knee. DATA REPOSITORY: RADIATION DOSE DELIVERED:
== END 2024-08-08 15:10 | disposition home or self-care (01) ==
LOC: DIORS 15:10
PROVIDERS: PCP Nurse Practitioner Family; Visit Provider Student in an Organized Health Care Education/Training Program
DX: M25.562 Pain in left knee (principal); M22.42 Chondromalacia patellae, left knee
CPT/HCPCS: 73562

== ENCOUNTER 2024-11-26 10:27 | Outpatient (REF) | payer BC, SELFPAY ==
--- NOTE | 2024-11-26 09:50 | PAPFT_PTH ---
PATIENT: Iraida Renee LOC: [facility] U#:[id number] AGE/SX: 34/F ROOM: RE11/26/[address]: Rowena Landa MD : 1990 BED: DIS: 11/26/2024 SPEC #: [id number] RECD: 11/26/24 12:44 STATUS: KEYUR REMicaela #: [id number] RODRIGO: 11/26/24 09:[address]: Rowena Landa DEPT: [facility] Cytology RECD BY: Hannah Echavarria ENTERED: 11/26/24 12:44 SP TYPE: PAPFT OT DR: PROSPER CAREY NP Tissues: 1 - CX/ENDOCX FOR PAP SMEARS Procedures: PAP THIN PREP/UVM Screening HPV DNA PROBE Comments: [id number] (HPV 16 & 18/45) (CHLAMYDIA/GC)
[2024-11-27 14:09] LABS: Chlamydia Result Negative (Negative); GC Result Negative (Negative)
== END 2024-11-26 10:28 | disposition home or self-care (01) ==
LOC: LBN 10:27
PROVIDERS: PCP Nurse Practitioner Family; Visit Provider Obstetrics & Gynecology
DX: Z12.4 Encounter for screening for malignant neoplasm of cervix (principal)
CPT/HCPCS: 87491; 87591; 88142; 87624

== ENCOUNTER 2024-12-25 10:41 | Outpatient (CLI) | payer BC, SELFPAY ==
[2024-11-23 16:37] LABS: HCG Quant, Pregnancy 10 mIU/mL (1-3)
== END 2024-12-25 10:42 | disposition home or self-care (01) ==
LOC: LBO 10:41
PROVIDERS: PCP Nurse Practitioner Family; Visit Provider Obstetrics & Gynecology
DX: Z32.01 Encounter for pregnancy test, result positive (principal)
CPT/HCPCS: 36415; 84702